=== PATIENT | male | born 1990 | race Caucasian/White ===

== ENCOUNTER 2016-12-28 20:47 | Emergency (ER) | payer SELFPAY ==
[~2016-12-28] VITALS: Ht 165.1 cm; Wt 61.2 kg
[2016-12-29 00:18] VITALS: BP 118/70
== END 2016-12-29 00:18 | disposition home or self-care (01) ==
LOC: ED 20:47
DX: T78.40XA Allergy, unspecified, initial encounter (principal); X58.XXXA Exposure to other specified factors, initial encounter
CPT/HCPCS: J1200; J2930; J3490

== ENCOUNTER 2017-03-02 08:23 | Emergency (ER) | payer BC ==
[2017-03-02 09:34] LABS: CALCIUM 8.9 mg/dL (8.5-10.1); CARBON DIOXIDE 31.4 mmol/L (21-32); CHLORIDE SERUM 104 mmol/L (98-107); GFR1 > 60 mL/min; GLUCOSE SERUM 82 mg/dL (74-106); SODIUM SERUM 141 mmol/L (136-145)
[2017-03-02 09:35] LABS: BASOPHIL % 0.4 % (0-2); PLATELET COUNT 195 x10^3mcL (130-400); RED CELL DISTRIBUTION WIDTH 12.7 % (11.5-14.5)
[2017-03-02 09:38] LABS: ALBUMIN 4.1 g/dL (3.4-5.0); ALKALINE PHOSPHATASE 63 U/L (46-116); ALT/SGPT 30 U/L (16-63); AMYLASE 49 U/L (25-115); AST/SGOT 30 U/L (15-37); BILIRUBIN TOTAL 2.37 mg/dL (0.20-1.00); CHOLESTEROL 135 mg/dL (<200); HDL CHOLESTEROL 55 mg/dL (40-60); LIPASE 157 IU/L (73-393); TOTAL PROTEIN, SERUM 7.2 g/dL (6.4-8.2)
[2017-03-02 10:16] LABS: microscopic required? NO
[2017-03-02 10:27] LABS: UA SPECIFIC GRAVITY 1.015 (1.005-1.035); urine erythrocyte NEGATIVE (NEGATIVE)
[2017-03-02 10:54] LABS: AMPHETAMINE QUAL UR NONE DETECTED (NEG <=1000)
[2017-03-02 11:16] VITALS: BP 125/83
== END 2017-03-02 11:16 | disposition home or self-care (01) ==
LOC: ED 08:23
PROVIDERS: Emergency Medicine
DX: R07.89 Other chest pain (principal); R20.0 Anesthesia of skin
CPT/HCPCS: 83880; 85378; G0480